=== PATIENT | male | born 1955 | race Caucasian/White ===

== ENCOUNTER 2017-01-24 13:55 | Emergency (ER) | payer OTHER ==
[~2017-01-24 13:55] MED LIST: ASAB PO; GLUCPH PO; LIPITOR20 PO; NIASPAN500 PO; TRIBENZOR 40-51 EAC1 PO; VICTOZA18 MG/3 ML SC
[2017-01-24 13:58] LABS: BASOPHILS 0.4 %; BASOPHILS ABSOLUTE 0.05 10/3/uL (0.0-0.16); EOSINOPHILS 0.5 %; EOSINOPHILS ABSOLUTE 0.07 10/3/uL (0.0-0.53); HEMATOCRIT 45.1 % (40.0-51.0); HEMOGLOBIN 15.8 g/dL (13.6-17.8); IMMATURE GRANULOCYTES 0.3 %; IMMATURE GRANULOCYTES ABSOLUTE 0.04 10/3/uL (0.0-0.11); LYMPHOCYTES ABSOLUTE 2.61 10/3/uL (0.67-4.30); MANUAL DIFF NO %; MEAN CORPUSCULAR HEMOGLOB 30.6 pg (26.0-34.0); MEAN CORPUSCULAR VOLUME 87.2 fL (80-100); MEAN PLATELET VOLUME 10.7 fL (9.2-13.0); MONOCYTES 9.6 %; MONOCYTES ABSOLUTE 1.26 10/3/uL (0.21-1.20); NEUTROPHILS 69.2 %; NEUTROPHILS ABSOLUTE 9.04 10/3/uL (2.02-8.40); PLATELET COUNT 344 10/3/uL (150-400); RBC DISTRIBUTION WIDTH 13.8 % (12.0-16.0); RED CELL COUNT 5.17 10/6/uL (4.7-6.1); WHITE BLOOD CELLS 13.1 10/3/uL (4.5-10.5)
[2017-01-24 14:17] LABS: A/G RATIO 0.9 (0.7-1.9); ALBUMIN 3.7 G/DL (3.5-5.0); ALKALINE PHOSPHATASE 129 U/L (45-117); BUN (BLOOD UREA NITROGEN) 16 MG/DL (6-23); CALCIUM, SERUM 10.1 MG/DL (8.5-10.4); CHLORIDE, SERUM 105 MMOL/L (96-112); CO2 (CARBON DIOXIDE) 31 MMOL/L (24-34); CREATININE 1.48 MG/DL (0.70-1.30); GFR AFRICAN AMERICAN 58 ML/MIN (>=60); GFR NON AFRICAN AMERICAN 50 ML/MIN (>=60); GLOBULIN 3.9 G/DL (2.5-4.1); GLUCOSE, SERUM 123 MG/DL (60-99); POTASSIUM, SERUM 3.3 MMOL/L (3.5-5.3); SGOT(AST) 36 U/L (5-40); SGPT(ALT) 52 U/L (5-65); SODIUM, SERUM 141 MMOL/L (135-148); TOTAL PROTEIN 7.6 G/DL (6.0-8.5)
[2017-01-24 15:30] LABS: ASCORBIC ACID (UR NOT ORDER) NEG (NEG); BILIRUBIN, URINE NEGATIVE (NEG); ER URINALYSIS TAT 0 Hrs 09 Mins; KETONE, URINE NEGATIVE (NEG); LEUKOCYTE ESTERASE(NOT OR NEG (NEG); NITRITE (URINE) NEG (NEG); WBC (NOT ORDERED) (RFLEX) 1 (0-5)
== END 2017-01-24 18:32 | disposition home or self-care (01) ==
LOC: ER 13:55
PROVIDERS: Nurse Practitioner
DX: N20.0 Calculus of kidney (principal); I10 Essential (primary) hypertension; E11.9 Type 2 diabetes mellitus without complications; Z85.828 Personal history of other malignant neoplasm of skin; Z88.0 Allergy status to penicillin; Z88.1 Allergy status to other antibiotic agents; Z79.82 Long term (current) use of aspirin; Z79.84 Long term (current) use of oral hypoglycemic drugs
CPT/HCPCS: 74176; 80053; 81001; 83690; 85025; 96374; 96375; 99284; J1170; J2405